=== PATIENT | female | born 1955 | race Caucasian/White ===

== ENCOUNTER → 2017-08-07 | Outpatient (CLI) | payer OTHER ==
[2013-03-01 13:40] VITALS: BP 117/81
[~2017-08-07] MED LIST: CALCIUM W/VITAM1 TAB PO; CENTRUM SILVER1 TA1 PO; CO Q-1050 MG PO; CRANBERRY EXTR250 MG PO; FLEXERIL10 MG PO; GOOD SENSE ASPI81 M1 PO; LEVOTHYROXIN0.075 MG PO; MELATONIN5 MG PO; OMEGA 31000 MG PO; OMEPRAZOLE20 MG PO; PHARMASSURE RE250 MG PO; PROBIOTIC FORMU1 CAP PO; TRAZADONE HYDR100 MG PO; TRIAMCINOLONE
[2017-08-07 11:52] LABS: ALBUMIN 3.8 g/dL (3.5-5.0); BUN/CREATININE RATIO 28.8 (6.0-26.0); CALCIUM 9.5 mg/dL (8.4-10.2); POTASSIUM 4.8 mmol/L (3.6-5.0); TOTAL BILIRUBIN 0.5 mg/dL (0.2-1.3); TOTAL PROTEIN 6.5 g/dL (6.3-8.2)
== END ==
LOC: LAB 10:41
PROVIDERS: Family Medicine
DX: E03.9 Hypothyroidism, unspecified (principal); E78.00 Pure hypercholesterolemia, unspecified; Z13.1 Encounter for screening for diabetes mellitus; Z13.6 Encounter for screening for cardiovascular disorders; I10 Essential (primary) hypertension

== ENCOUNTER → 2017-08-21 | Day surgery (SDC) | payer OTHER ==
[2013-03-01 13:40] VITALS: BP 117/81
== END ==
LOC: MSO 08:26
DX: Z12.11 Encounter for screening for malignant neoplasm of colon (principal); D12.0 Benign neoplasm of cecum; Z86.010 Personal history of colon polyps; I10 Essential (primary) hypertension; E07.9 Disorder of thyroid, unspecified; K21.9 Gastro-esophageal reflux disease without esophagitis; F32.9 Major depressive disorder, single episode, unspecified; E66.9 Obesity, unspecified
CPT/HCPCS: 00810; J2704; J3010; J7120

== ENCOUNTER 2018-05-15 12:55 | Emergency (ER) | payer OTHER ==
[~2018-05-15 12:55] MED LIST changes: +ANTIVERT12.5 M1 PO; +AZO CRANBERRY1 EACH PO; -CENTRUM SILVER1 TA1 PO; -CRANBERRY EXTR250 MG PO; +FLUOXETINE HCL10 MG PO; -LEVOTHYROXIN0.075 MG PO; +LEVOTHYROXIN0.088 MG PO; +OCUVITE TABLET1 TAB PO; +OMEGA 3-6-9 11200 MG PO; -OMEGA 31000 MG PO; +WELLBUTRIN SR100 M3 PO
[2018-05-15] MEDS ORDERED: WELLBUTRIN XL300 M1 PO (13:05)
[2018-05-15] MEDS ORDERED: GOOD NEIGHBOR P20 M1 PO (13:05)
[2018-05-15] MEDS ORDERED: ZOFRAN ODT8 M1 PO (15:28)
[2018-05-15] MEDS ORDERED: PERCOCET 325 MG1 TA2 PO (15:28)
[2018-05-15] MEDS ORDERED: IBU800 M1 PO (15:45)
[2018-05-15 15:50] VITALS: BP 107/80
== END 2018-05-15 15:53 | disposition home or self-care (01) ==
LOC: ED 12:55
DX: S42.292A Other displaced fracture of upper end of left humerus, initial encounter for closed fracture (principal); W11.XXXA Fall on and from ladder, initial encounter; Y92.009 Unspecified place in unspecified non-institutional (private) residence as the place of occurrence of the external cause; I10 Essential (primary) hypertension; Z79.899 Other long term (current) drug therapy
CPT/HCPCS: J2405; J3010

== ENCOUNTER → 2018-08-16 | Outpatient (CLI) | payer OTHER ==
[~2018-08-16] MED LIST changes: +GOOD NEIGHBOR P20 M1 PO; +IBU800 M1 PO; +PERCOCET 325 MG1 TA2 PO; +WELLBUTRIN XL300 M1 PO; +ZOFRAN ODT8 M1 PO
[2018-08-16 09:33] LABS: ALBUMIN 4.1 g/dL (3.5-5.0); DIRECT BILIRUBIN 0.2 mg/dL (0.0-0.4); TOTAL BILIRUBIN 0.2 mg/dL (0.2-1.3); TOTAL PROTEIN 6.7 g/dL (6.3-8.2)
== END ==
LOC: LAB 09:02
PROVIDERS: Family Medicine
DX: Z13.1 Encounter for screening for diabetes mellitus (principal); Z13.6 Encounter for screening for cardiovascular disorders; E78.00 Pure hypercholesterolemia, unspecified; E03.9 Hypothyroidism, unspecified; I10 Essential (primary) hypertension

== ENCOUNTER 2018-08-22 10:00 | Outpatient (RCR) | payer OTHER | END 2018-08-23 | disposition home or self-care (01) | LOC: PT | DX: S42.202D Unspecified fracture of upper end of left humerus, subsequent encounter for fracture with routine healing (principal) ==

== ENCOUNTER → 2018-08-31 | Outpatient (CLI) | payer OTHER | LOC: CARDLAB 08:37 → CARDREHAB 08:37 → CARDLAB 15:21 | DX: Z13.6 Encounter for screening for cardiovascular disorders (principal); E78.00 Pure hypercholesterolemia, unspecified | CPT/HCPCS: A9500 ==

== ENCOUNTER 2018-09-06 13:00 | Outpatient (RCR) | payer OTHER | END 2018-09-06 13:30 | disposition home or self-care (01) | LOC: PT 13:00 | DX: S42.202D Unspecified fracture of upper end of left humerus, subsequent encounter for fracture with routine healing (principal) ==

== ENCOUNTER → 2018-11-23 | Outpatient (CLI) | payer OTHER | LOC: LAB 11:18 | PROVIDERS: Family Medicine | DX: E03.8 Other specified hypothyroidism (principal) ==

== ENCOUNTER → 2019-04-22 | Outpatient (CLI) | payer OTHER | LOC: LAB 16:42 | DX: E03.9 Hypothyroidism, unspecified (principal) ==